=== PATIENT | female | born 1940 | race Caucasian/White ===

== ENCOUNTER 2017-11-27 16:07 | Emergency (ER) | payer BC, OTHER ==
[~2017-11-27] VITALS: Ht 165.1 cm; Wt 138.6 kg
[~2017-11-27 16:07] MED LIST: KEFLEX500 MG PO
[2017-11-27 17:15] LABS: HEMATOCRIT 42.7 % (36.0-46.0); HEMOGLOBIN 14.3 G/DL (11.9-15.5); MCH 30.2 PG (29.0-34.0); MCHC 33.5 G/DL (30.0-36.0); MCV 90.1 FL (83-99); PLATELET COUNT 119 K/uL (156-360); RBC DIS.WIDTH-CV 12.9 % (11.8-14.6); RBC DIS.WIDTH-SD 42.8 % (39-53); RED BLOOD COUNT 4.74 M/uL (3.80-5.20); WHITE BLOOD COUNT 3.2 K/uL (4.1-10.2)
[2017-11-27 17:24] LABS: CHLORIDE 107 mEq/L (99-109); POTASSIUM 4.6 mEq/L (3.7-5.4); SODIUM 142 mEq/L (136-147)
[2017-11-27 17:25] LABS: GLUCOSE 121 mg/dL (70-99)
[2017-11-27 17:29] LABS: CREATININE 0.7 mg/dL (0.6-1.3); GFR ESTIMATE (CALCULATED) > 59 mL/min/
[2017-11-27] MEDS ORDERED: DELTASONE20 M1 PO (17:29)
[2017-11-27] MEDS ORDERED: ROBITUSSIN AC,T10 ML PO (17:29)
[2017-11-27] MEDS ORDERED: ZITHROMAX Z-PA250 MG PO (17:29)
[2017-11-27 17:30] LABS: UREA NITROGEN (BUN) 15 mg/dL (9-23)
[2017-11-27 17:43] VITALS: BP 199/60
== END 2017-11-27 17:54 | disposition home or self-care (01) ==
LOC: EME 16:07
DX: J20.9 Acute bronchitis, unspecified (principal); E78.5 Hyperlipidemia, unspecified; F41.9 Anxiety disorder, unspecified; F32.9 Major depressive disorder, single episode, unspecified
CPT/HCPCS: 71046; 80048; 85027; 99281; 99283